=== PATIENT | male | born 1960 | race Caucasian/White ===

== ENCOUNTER 2016-12-08 17:28 | Emergency (ER) | payer MEDICARE, MEDICAID ==
[~2016-12-08] VITALS: Ht 182.9 cm; Wt 90.7 kg
[~2016-12-08 17:28] MED LIST: ALPRAZOLAM0.5 MG PO; AMBIEN10 MG PO; AMLODIPINE BESYL5 MG PO; DILTIAZEM ER240 MG PO; DIPHEN/ATROP PO; DIPHENOXYLATE-1 EACH PO; GABAPENTIN300 MG PO; KEPPRA XR500 MG; METFORMIN HCL500 MG PO; METFORMIN HCL850 MG PO; METOPROLOL SUCC50 MG PO; METOPROLOL TAR100 MG PO; NITROSTAT0.4 MG SL; SIMVASTATIN20 MG PO; XARELTO20 MG PO; ZESTRIL20 MG PO; ZOLPIDEM TARTRA10 MG PO
--- NOTE | 2016-12-08 20:05 | EKG ---
[facility] [address] [facility] [place] [address] Signed Atrial fibrillation with rapid ventricular response Abnormal ECG When compared with ECG of 08-JUN-2016 13:43, Atrial fibrillation has replaced Sinus rhythm Confirmed by PRACHI CARRASQUILLO MD ([id number]) on 12/08/2016 8:04:59 PM Electronically Signed By: PRACHI CARRASQUILLO MD 12/08/162004 PATIENT NAME: BRICE RUELAS Electrocardiogram DATE OF : 58 PHYSICIAN: PRACHI CARRASQUILLO MD REPORT #: [id number] REPORT IS CONFIDENTIAL AND NOT TO BE RELEASED WITHOUT AUTHORIZATION
== END 2016-12-08 20:20 | disposition home or self-care (01) ==
LOC: ED 17:28
DX: I48.91 Unspecified atrial fibrillation (principal); E11.9 Type 2 diabetes mellitus without complications; I10 Essential (primary) hypertension; F17.200 Nicotine dependence, unspecified, uncomplicated; Z79.84 Long term (current) use of oral hypoglycemic drugs; Z79.899 Other long term (current) drug therapy
CPT/HCPCS: 80053; 83735; 84484; 85025; 93005; 93010; 96374; 96375; 96376; 99285

== ENCOUNTER 2016-12-23 10:41 | Emergency (ER) | payer MEDICARE, MEDICAID ==
[~2016-12-23] VITALS: Ht 182.9 cm; Wt 90.7 kg
[2016-12-23] MEDS ORDERED: TOPROL XL100 MG PO (11:01)
[2016-12-23] MEDS ORDERED: ATORVASTATIN CA40 MG PO (11:02)
--- NOTE | 2016-12-25 15:04 | EKG ---
[facility] [address] [place] [address] Signed Sinus rhythm with premature atrial complexes Possible Left atrial enlargement Borderline ECG When compared with ECG of 08-DEC-2016 17:48, Sinus rhythm has replaced Atrial fibrillation Vent. rate has decreased BY 46 BPM Confirmed by JENISE DA SILVA MD ([id number]) on 12/25/2016 3:03:54 PM Electronically Signed By: JENISE DA SILVA MD 12/25/16 1504 PATIENT NAME: BRICE RUELAS Electrocardiogram DATE OF : 58 PHYSICIAN: JENISE DA SILVA MD REPORT #: [id number] REPORT IS CONFIDENTIAL AND NOT TO BE RELEASED WITHOUT AUTHORIZATION
== END 2016-12-23 12:31 | disposition home or self-care (01) ==
LOC: ED 10:41
DX: R00.0 Tachycardia, unspecified (principal); E11.9 Type 2 diabetes mellitus without complications; I48.91 Unspecified atrial fibrillation; I10 Essential (primary) hypertension; F43.10 Post-traumatic stress disorder, unspecified; F17.200 Nicotine dependence, unspecified, uncomplicated; Z86.19 Personal history of other infectious and parasitic diseases; Z79.84 Long term (current) use of oral hypoglycemic drugs; Z79.899 Other long term (current) drug therapy
CPT/HCPCS: 71020; 80053; 84484; 85025; 85610; 85730; 93005; 93010; 99284

== ENCOUNTER 2017-08-27 13:59 | Emergency (ER) | payer MEDICARE, MEDICAID ==
[~2017-08-27] VITALS: Ht 182.9 cm; Wt 90.7 kg
[~2017-08-27 13:59] MED LIST changes: +ATORVASTATIN CA40 MG PO; +TOPROL XL100 MG PO
[2017-08-27] MEDS ORDERED: SOTALOL80 M1 PO (14:19)
[2017-08-27] MEDS ORDERED: HYDRALAZINE HCL25 MG PO (14:20)
[2017-08-27] MEDS ORDERED: AMARYL4 MG PO (14:21)
[2017-08-27] MEDS ORDERED: LANTUS100 UNITS/ SUB-Q (14:23)
[2017-08-27] MEDS ORDERED: XANAX0.5 MG PO (15:35)
--- NOTE | 2017-08-28 20:57 | EKG ---
[facility] [address] [facility] [place] [address] Signed Sinus tachycardia with 1st degree AV block ST \T\ T wave abnormality, consider inferior ischemia Abnormal ECG When compared with ECG of 04-JUN-2017 10:09, Sinus rhythm has replaced Atrial fibrillation Vent. rate has increased BY 49 BPM T wave inversion now evident in Inferior leads Confirmed by PRACHI CARRASQUILLO MD ([id number]) on 08/28/2017 8:56:57 PM Electronically Signed By: PRACHI CARRASQUILLO MD 08/28/172056 PATIENT NAME: BRICE RUELAS Electrocardiogram DATE OF : 58 PHYSICIAN: PRACHI CARRASQUILLO MD REPORT #: [id number] REPORT IS CONFIDENTIAL AND NOT TO BE RELEASED WITHOUT AUTHORIZATION
== END 2017-08-27 16:00 | disposition home or self-care (01) ==
LOC: ED 13:59
DX: R00.0 Tachycardia, unspecified (principal); F41.9 Anxiety disorder, unspecified; I10 Essential (primary) hypertension; E11.9 Type 2 diabetes mellitus without complications; F17.200 Nicotine dependence, unspecified, uncomplicated; Z79.4 Long term (current) use of insulin; Z79.899 Other long term (current) drug therapy
CPT/HCPCS: 80053; 84484; 85025; 93005; 93010; 96374; 99283; J2060

== ENCOUNTER 2019-08-01 16:56 | Emergency (ER) | payer MEDICARE, MEDICAID ==
[~2019-08-01] VITALS: Ht 182.9 cm; Wt 104.8 kg
[~2019-08-01 16:56] MED LIST changes: +AMARYL4 MG PO; +HYDRALAZINE HCL25 MG PO; +LANTUS100 UNITS/ SUB-Q; +SOTALOL80 M1 PO; +XANAX0.5 MG PO
--- OUTSIDE RECORDS SUMMARY | 2019-08-01 17:00 | XMS ---
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 Noa VISIT COUNT (12 MO.) 1 DEBBIE [place] TOTAL 1 NOTE: Visits indicate total known visits. ED/UCC VISIT TRACKING (12 MO.) 08/01/2019 16:[address] [facility] [place] TYPE: Emergency COMPLAINT: - SKIN CONDITION INPATIENT VISIT TRACKING (12 MO.) No inpatient visits to display in this time frame [id number]
--- NOTE | 2019-08-02 19:45 | EKG ---
[facility] [address] [facility] [place] [address] Signed Atrial flutter with variable AV block T wave abnormality, consider inferior ischemia Abnormal ECG When compared with ECG of 27-AUG-2017 14:19, Atrial flutter has replaced Sinus rhythm ST no longer elevated in Inferior leads Confirmed by VIVIAN BATISTA DO ([id number]) on 08/02/2019 7:45:05 PM Electronically Signed By: VIVIAN BATISTA DO 08/02/19 1945 PATIENT NAME: BRICE RUELAS Electrocardiogram DATE OF : 58 PHYSICIAN: VIVIAN BATISTA DO REPORT #: [id number] REPORT IS CONFIDENTIAL AND NOT TO BE RELEASED WITHOUT AUTHORIZATION
== END 2019-08-02 00:25 | disposition home or self-care (01) ==
LOC: ED 16:56
DX: K62.89 Other specified diseases of anus and rectum (principal); E11.9 Type 2 diabetes mellitus without complications; I48.91 Unspecified atrial fibrillation; I10 Essential (primary) hypertension; Z87.891 Personal history of nicotine dependence; Z79.899 Other long term (current) drug therapy
CPT/HCPCS: 72193; 80053; 81001; 85025; 93005; 93010; 99285-25; J7030; Q9967

== ENCOUNTER 2022-01-10 09:05 | Emergency (ER) | payer MEDICARE, MEDICAID ==
[~2022-01-10] VITALS: Ht 182.9 cm; Wt 63.5 kg
--- OUTSIDE RECORDS SUMMARY | 2022-01-10 09:08 | XMS ---
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 [employer] VISIT COUNT (12 MO.) 1 DEBBIE Birch TOTAL 1 NOTE: Visits indicate total known visits. ED/UCC VISIT TRACKING (12 MO.) 01/10/2022 09:06 [facility] [place] TYPE: Emergency COMPLAINT: - MULTIPLE COMPLAINTS INPATIENT VISIT TRACKING (12 MO.) No inpatient visits to display in this time frame [email or web address]
--- NOTE | 2022-01-10 15:57 | EKG ---
[facility] [address] [facility] [place], [place] [address] Signed Normal sinus rhythm Normal ECG No previous ECGs available Confirmed by JENISE DA SILVA MD ([id number]) on 01/10/2022 3:56:47 PM Electronically Signed By: JENISE DA SILVA MD 01/10/22 1557 PATIENT NAME: BRICE RUELAS Electrocardiogram DATE OF : 58 PHYSICIAN: JENISE DA SILVA MD REPORT #: [id number] REPORT IS CONFIDENTIAL AND NOT TO BE RELEASED WITHOUT AUTHORIZATION
== END 2022-01-10 15:35 | disposition short-term general hospital (02) ==
LOC: ED 09:05
DX: U07.1 COVID-19 (principal); R77.8 Other specified abnormalities of plasma proteins; E83.42 Hypomagnesemia; I48.91 Unspecified atrial fibrillation; E11.9 Type 2 diabetes mellitus without complications; I10 Essential (primary) hypertension; F43.10 Post-traumatic stress disorder, unspecified; Z87.891 Personal history of nicotine dependence; Z79.899 Other long term (current) drug therapy; Z79.84 Long term (current) use of oral hypoglycemic drugs; Z79.4 Long term (current) use of insulin
CPT/HCPCS: 36415; 71045; 80053; 81001; 82150; 82247; 83605; 83735; 84484; 85025; 87088; 87502; 93005; 93010; 96365; 96375; 96376; 99285-25; C9803; J1644; J2270; J2405; J3475; J7030; U0003